=== PATIENT | male | born 1990 | race Caucasian/White ===

== ENCOUNTER 2024-11-11 08:36 | Emergency (ER) | payer BC, SELFPAY ==
[2024-11-11 08:43] VITALS: BP 173/78; PULSE 93; RESP 18; TEMP 37.2; O2SAT 99
[2024-11-11 09:10] LABS: Hematocrit 41.9 % (42.0-52.0); Hemoglobin 14.1 g/dL (14.0-18.0); Immature Granulocyte Percent A 0.4 % (0-0.5); Lymphocytes Absolute Auto 1.41 K/mm3 (0.9-3.2); Mean Corpuscular HGB Conc 33.7 g/dl (32-36); Mean Corpuscular Hemoglobin 29.7 pg (26-34); Mean Corpuscular Volume 88.4 fl (80-100); Nucleated Red Blood Cells Absolute Auto 0.000 K/mm3 (0.0-0.012); Nucleated Red Blood Cells Perc 0.0 % (0.0-0.2); Platelet Count Result 190 k/mm3 (150-375); Red Blood Count 4.74 M/mm3 (4.6-6.20); White Blood Count 8.3 K/mm3 (4.5-10.0)
--- OUTSIDE RECORDS SUMMARY | 2024-11-11 09:13 | XMS_ITS | Clinical Summary ---
Author Organization [facility] Address [address] [place] [address] Care Team Providers Care Mine Equipment Design Engineer Name Role Phone Johnathan Quevedo MD Primary Care Provider +1- [phone] Allergies Active Allergy Reactions Criticality Noted Date Comments Amoxicillin Tightness in Throat High 05/05/2023 Penicillins OTHER (SEE COMMENTS),SWELLING,UNKNOWN High 06/02/2011 Sulfa Antibiotics OTHER (SEE COMMENTS),SWELLING High 06/02/2011 Medications Multiple Vitamin (MULTI-VITAMIN DAILY) Oral Tab Take by mouth. Active Cholecalciferol (VITAMIN D) 50 MCG (1999 [place]) Oral Cap Take by mouth. Active Active Problems Problem Noted Date Diagnosed Date Dyslipidemia--LDL 288 05/08/2023 Obesity with body mass index (BMI) of 30.0 to 39 .9 05/05/2023 Encounters Date Type Department Care Team Description 11/06/2024 8:40 AM CDT Office Visit Immediate Care - [address] [place] [address] [place], [place] [address] Andie Mendez APRN Rectal pain (Primary Dx); Elevated blood pressure reading 11/06/2024 8:05 AM CDT [facility] Lab Encounter Lab - [address], [place] [address] [place] [address] Screening for thyroid disorder; Screening for metabolic disorder; Dyslipidemia--LDL 288; Perineal pain in male 11/06/2024 Orders Only Lab - [address], [place] [address] [place] [address] Sina Palacios PA-C Dyslipidemia--LDL 288 (Primary Dx) 11/03/2024 9:30 AM CDT Office Visit Internal Medicine - [facility] [place] [address] [facility] [address] [place] [address] Sina Palacios PA-C Encounter for preventative adult health care examination (Primary Dx); Perineal pain in male; Dyslipidemia--LDL 288; Screening for deficiency anemia; Screening for metabolic disorder; Screening for thyroid disorder from Last 3 Months Immunizations Immunization Administration Dates Next Due DT 10/17/2001 DTAP 10/13/1994 DTAP INFANRIX 10/13/1994, 3,04/25/1991,1990,1990 DTP 10/17/2001,10/13/1994 FLUZONE 6 months and older P FS 0.5 ml (12239) 11/12/2017 HEP B 07/18/2001,03/14/2001,01/18/2001 HEP B, Ped/Adol 07/18/2001,03/14/2001,01/18/2001 HIB 3 Dose Schedule 01/23/1992, 2,02/14/1991,1990 Hib, Unspecified Formulation 01/23/1992, 04/25/1991,02/14/1991,1990 IPV 10/13/1994, 3,02/14/1991,1990 MMR 10/13/1994,01/23/1992 Meningococcal-Menactra 08/20/2009 OPV 10/13/1994, 3,02/14/1991,1990 TDAP 11/03/2024,11/20/2014,08/20/2009 Tb Intradermal Test 10/05/2018,09/28/2017,2001 Family History Medical History Relation Comments cognitive impairment Father Heart Disease Maternal Grandfather Breast Cancer Maternal Grandmother Dementia Paternal Aunt Relation Status Comments Father Alive Maternal Grandfather Maternal Grandmother Mother Alive Paternal Aunt Social History Tobacco Use Types Packs/Day Years Used Date Smoking Tobacco: Never Passive Smoke Exposure: Never Smokeless Tobacco: Never Tobacco Cessation:Counseling Given: Not Answered Alcohol Use Standard Drinks/Week Comments Not Currently 0 (1 standard drink = 0.6 oz pur e alcohol) ocassional PHQ-2 Answer Date Recorded PHQ-2 SCORE 0 11/03/2024 AUDIT-C Answer Date Recorded Q1: How often do you have a drink containing alc ohol? 2-4 times a month 11/03/2024 Q2: How many drinks containi ng alcohol do you have on a typical day when you are drinking? 1 or 2 11/03/2024 Q3: How often do you have si x or more drinks on one occasion? 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 Not on file Last Filed Vital Signs Vital Sign Reading Time Taken Comments Blood Pressure 152/87 11/06/2024 8:27 AM CDT Pulse 75 11/06/2024 8:27 AM CDT Temperature 36.9 C (98.4 F) 11/06/2024 8:27 AM CDT Respiratory Rate 18 11/06/2024 8:27 AM CDT Oxygen Saturation 98% 11/06/2024 8:27 AM CDT Inhaled Oxygen Concentration - - Weight 108 kg (238 lb) 11/03/2024 9:22 AM CDT Height 182.9 cm (6') 11/03/2024 9:22 AM CDT Body Mass Index 32.28 11/03/2024 9:22 AM CDT Plan of Treatment Upcoming Encounters Date Type Department Care Team (Late st Contact Info) Description 11/14/2024 11:15 AM CDT Office Visit Surgery - [facility] [place] [address] [place] [address] Sherwin Johnson MD [address] [place] [address] Health Maintenance Due Date Last Done Comments Influenza Vaccine (#1) 2024 11/12/2017 Annual Depression Screen 11/03/2025 11/03/2024 Annual Physical 11/03/2025 11/03/2024, 11/03/2024, 05/05/2023 COVID-19 Vaccine Discontinued 04/14/2021, 07/22/2020, 06/24/2020 Pneumococcal Vaccine: to 49yrs Aged Out No longer eligible b ased on patient's age to complete this topic Procedures Procedure Name Priority Date/Time Associated Diagnosis Comments URINALYSIS, ROUTINE WITH MICROSCOPIC EXAMINATION ON POSITIVES Routine 11/06/2024 8:32 AM CDT Screening for metabolic disorder COMPLETE BLOOD COUNT (CBC) WITH DIFFERENTIAL Routine 11/06/2024 8:03 AM CDT Screening for thyroid disorder PROSTATE-SPECIFIC ANTIGEN (PSA) Routine 11/06/2024 8:03 AM CDT Perineal pain in male TSH W REFLEX TO FREE T4 Routine 11/06/2024 8:03 AM CDT Screening for thyroid disorder LIPID PANEL Routine 11/06/2024 8:03 AM CDT Dyslipidemia--LDL 288 COMPREHENSIVE METABOLIC PANEL Routine 11/06/2024 8:03 AM CDT Screening for metabolic disorder COMPLETE BLOOD COUNT (CBC) WITH DIFFERENTIAL Routine 11/06/2024 8:03 AM CDT Screening for thyroid disorder PERIODIC PREVENTIVE MED EST PATIENT 18-39 YRS Routine 11/03/2024 5:57 PM CDT Encounter for preventative adult health care examination Screening for deficiency anemia Screening for metabolic disorder Screening for thyroid disorder from Last 3 Months Results * URINALYSIS, ROUTINE WITH MICROSCOPIC EXAMINATION ON POSITIVES (11/06/2024 8:32 AM CDT) Color YELLOW YELLOW 11/07/2024 7:07 AM CDT [facility] Appearance CLEAR CLEAR 11/07/2024 7:07 AM CDT [facility] Bilirubin NEGATIVE NEGATIVE 11/07/2024 7:07 AM CDT [facility] Ketones NEGATIVE NEGATIVE 11/07/2024 7:07 AM CDT [facility] Specific Clancy 1.015 1.001 - 1.035 11/07/2024 7:07 AM CDT [facility] Occult Blood NEGATIVE NEGATIVE 11/07/2024 7:07 AM CDT [facility] Ph 7.5 5.0 - 8.0 11/07/2024 7:07 AM CDT [facility] Protein NEGATIVE NEGATIVE 11/07/2024 7:07 AM CDT [facility] Nitrite NEGATIVE NEGATIVE 11/07/2024 7:07 AM CDT [facility] Leukocyte Esterase NEGATIVE NEGATIVE 11/07/2024 7:07 AM CDT [facility] Glucose NEGATIVE NEGATIVE 11/07/2024 7:07 AM CDT [facility] Urine 11/06/2024 8:32 AM CDT 11/06/2024 8:32 AM CDT Narrative [facility] - 11/07/2024 7:07 AM CDT Performing Organization Information: [facility] [address] [place] [address] Sekou Nguyen Sina Palacios PA-C URINE ORDERABLES Final Result [facility] * COMPLETE BLOOD COUNT (CBC) WITH DIFFERENTIAL (11/06/2024 8:03 AM CDT) WBC 6.83 4.00 - 13.00 10^3/uL 11/06/2024 3:27 PM CDT [facility] RBC 5.03 4.30 - 5.70 10^6/uL 11/06/2024 3:27 PM CDT [facility] Hemoglobin 15.1 13.0 - 17.0 g/dL 11/06/2024 3:27 PM CDT [facility] Hematocrit 45.6 37.0 - 53.0 % 11/06/2024 3:27 PM CDT [facility] MCV 90.7 80.0 - 99.0 fL 11/06/2024 3:27 PM CDT [facility] MCH 30.0 27.0 - 33.2 pg 11/06/2024 3:27 PM CDT [facility] MCHC 33.1 31.0 - 37.0 g/dL 11/06/2024 3:27 PM CDT [facility] Platelet Count 210 150 - 450 10^3/uL 11/06/2024 3:27 PM CDT [facility] RDW 12.3 11.5 - 16.0 % 11/06/2024 3:27 PM CDT [facility] MPV 9.7 7.0 - 11.5 fL 11/06/2024 3:27 PM CDT [facility] Neutrophils Absolute 4.57 1.30 - 6.70 10 3/ L 11/06/2024 3:27 PM CDT [facility] Lymphocytes Absolute 1.22 0.90 - 4.00 10 3/ L 11/06/2024 3:27 PM CDT [facility] Monocytes Absolute 0.92 0.10 - 1.00 10 3/ L 11/06/2024 3:27 PM CDT [facility] Eosinophils Absolute 0.09 0.00 - 0.30 10 3/ L 11/06/2024 3:27 PM CDT [facility] Basophils Absolute 0.03 0.00 - 0.10 10 3/ L 11/06/2024 3:27 PM CDT [facility] nRBC Absolute 0.000 0.000 - 0.012 10 3/ L 11/06/2024 3:27 PM CDT [facility] Neutrophils % 66.9 % 11/06/2024 3:27 PM CDT [facility] Lymphocytes % 17.9 % 11/06/2024 3:27 PM CDT [facility] Monocytes % 13.5 % 11/06/2024 3:27 PM CDT [facility] Eosinophils % 1.3 % 11/06/2024 3:27 PM CDT [facility] Basophils % 0.4 % 11/06/2024 3:27 PM CDT [facility] nRBC/100 WBC 0.00 % 11/06/2024 3:27 PM CDT [facility] Blood Venipuncture / Unknown 11/06/2024 8:03 AM CDT 11/06/2024 8:03 AM CDT Sina Fink PA-C LAB BLOOD ORDERABLES Final Resu lt [facility] [address] [phone] * (ABNORMAL) COMPREHENSIVE METABOLIC PANEL (11/06/2024 8:03 AM CDT) Patient Fasting? Yes 11/07/19 3:16 PM CDT [facility] Glucose 84 74 - 109 mg/dL 11/06/2024 3:16 PM CDT [facility] Blood Urea Nitrogen 21.0(H) 6.0 - 20.0 mg/dL 11/06/2024 3:16 PM CDT [facility] Creatinine 1.11 0.70 - 1.20 mg/dL 11/06/2024 3:16 PM CDT [facility] Sodium 139 136 - 145 mmol/L 11/06/2024 3:16 PM CDT [facility] Potassium 4.5 3.5 - 5.2 mmol/L 11/06/2024 3:16 PM CDT [facility] Chloride 103 98 - 107 mmol/L 11/06/2024 3:16 PM CDT [facility] Carbon Dioxide 25.1 22.0 - 29.0 mmol/L 11/06/2024 3:16 PM CDT [facility] Calcium 9.3 8.6 - 10.3 mg/dL 11/06/2024 3:16 PM CDT [facility] Total Protein 7.4 6.4 - 8.3 g/dL 11/06/2024 3:16 PM CDT [facility] Albumin 4.3 3.5 - 5.2 g/dL 11/06/2024 3:16 PM CDT [facility] Bilirubin, Total 0.67 0.00 - 1.20 mg/dL 11/06/2024 3:16 PM CDT [facility] Alkaline Phosphatase 54 45 - 117 U/L 11/06/2024 3:16 PM CDT [facility] AST 34 0 - 40 U/L 11/06/2024 3:16 PM CDT [facility] ALT 29 0 - 41 U/L 11/06/2024 3:16 PM CDT [facility] GFR CKD-EPI NO RACE 89.4 >=60.0 mL/min/1.7 3 square meters 11/06/2024 3:16 PM CDT [facility] Comment: Estimated GFR unit: ml/min/1.73 square meters. GFR has been changed to the non-race based CKD-EPI equation as recommended by The National Kidney Foundation (NKF) and the [place] Society of Nephrology. As per College of [place] Pathologists (CAP) recommendations, potential for systematic population differences is still present when using creatinine-only eGFR equations. Caution should be used when interpreting results around fixed clinical decision points. Blood Venipuncture / Unknown 11/06/2024 8:03 AM CDT 11/06/2024 8:03 AM CDT [employer] COATS-C LAB BLOOD ORDERABLES Final Resu lt [facility] [address] [phone] * PROSTATE-SPECIFIC ANTIGEN (PSA) (11/06/2024 8:03 AM CDT) PSA 0.420 0.01 - 4 ng/mL 11/07/2024 9:03 AM CDT [facility] Blood Venipuncture / Unknown 11/06/2024 8:03 AM CDT 11/06/2024 8:03 AM CDT SinaSSN Funding AR-C LAB BLOOD ORDERABLES Final Resu lt [facility] [address] [place], [place] [id number] [place] [address] * (ABNORMAL) LIPID PANEL (11/06/2024 8:03 AM CDT) Patient Fasting? Yes 11/07/19 3:16 PM CDT [facility] Triglycerides 77 <=150 mg/dL 11/06/2024 3:16 PM CDT [facility] Direct HDL 34(L) >=40 mg/dL 11/06/2024 3:16 PM CDT [facility] Comment:Guidelines for high density lipoprotein (HDL) are adapted from the National Cholesterol Education Program (NCEP).Values >=40 mg/dL are considered a negative risk factor for coronary heart disease (CHD) and are considered protective. Risk Factor 6.7(H) <5.0 11/06/2024 3:16 PM CDT [facility] Cholesterol 229(H) <=200 mg/dL 11/06/2024 3:16 PM CDT [facility] Calculated LDL 180(H) <=130 mg/dL 11/06/2024 3:16 PM CDT [facility] Calculated VLDL 15 <=30 mg/dL 11/06/2024 3:16 PM CDT [facility] Blood Venipuncture / Unknown 11/06/2024 8:03 AM CDT 11/06/2024 8:03 AM CDT Sina Palacios PA-C LAB BLOOD ORDERABLES Final Resu lt [facility] [address] [place] [address] * TSH W REFLEX TO FREE T4 (11/06/2024 8:03 AM CDT) TSH 1.150 0.270 - 4.200 mIU/L 11/06/2024 3:15 PM CDT [facility] Blood Venipuncture / Unknown 11/06/2024 8:03 AM CDT 11/06/2024 8:03 AM CDT Sina Palacios PA-C LAB BLOOD ORDERABLES Final Resu lt [facility] [address] [phone] from Last 3 Months Insurance [facility] Care Teams Mine Equipment Design Engineer Relationship Specialty [place] [address] [facility] [address] [place] [phone] PCP - General Internal Medicine 05/05/23
--- OUTSIDE RECORDS SUMMARY | 2024-11-11 09:13 | XMS_ITS | Clinical Summary ---
Author Organization [facility] Address [address] [place] [address] Care Team Providers Care Open Hearth Furnace Laborer Name Role Phone Johnathan Quevedo MD Primary Care Provider +1- [phone] Allergies Active Allergy Reactions Criticality Noted Date Comments Amoxicillin UNKNOWN 11/06/2024 Penicillins UNKNOWN 11/06/2024 Sulfa Antibiotics UNKNOWN 11/06/2024 Medications ciprofloxacin 500 MG Oral Tab Take 1 tablet (500 mg total) by mouth 2 (two) times daily for 7 days. 14 tablet 11/06/2024 Active metroNIDAZOLE 500 MG Oral Tab Take 1 tablet (500 mg total) by mouth 3 (three) times daily for 7 days. 21 tablet 11/06/2024 5 Active Encounters Date Type Department Care Team Description 11/06/2024 9:13 AM CDT - 11/06/2024 10:09 AM T [facility] Emergency Department [address] [place] [address] Bebeto Jones MD Perianal abscess (Primary Dx) Discharge Disposition: Home or Self Care 11/06/2024 Travel from Last 3 Months Social History Tobacco Use Types Packs/Day Years Used Date Smoking Tobacco: Never Smokeless Tobacco: Never Tobacco Cessation:Counseling Given: Not Answered Interpersonal Safety Answer Date Record ed Feels Physically and Emotionally Safe Not on dave e 11/06/2024 Physically Hurt by Someone Not on file 11/06 Humiliated or Emotionally Abused by Someone Not on file 11/06/2024 Does healthcare provider obs erve any obvious signs or symptoms of abuse/neglect? No 11/06/2024 Domestic Safety - Pt Reported (Most Recent Flow) No 11/06/2024 Sex and Gender Information Value Date Recorded Sex Assigned at Not on file Legal Sex Male 9:02 AM CDT Gender Identity Not on file Sexual Orientation Not on file Last Filed Vital Signs Vital Sign Reading Time Taken Comments Blood Pressure 147/81 11/06/2024 9:15 AM CDT Pulse 74 11/06/2024 9:15 AM CDT Temperature 37.4 C (99.4 F) 11/06/2024 9:08 AM CDT Respiratory Rate 20 11/06/2024 9:15 AM CDT Oxygen Saturation 98% 11/06/2024 9:15 AM CDT Inhaled Oxygen Concentration - - Weight 106.6 kg (235 lb) 11/06/2024 9:08 AM CDT Height 182.9 cm (6') 11/06/2024 9:08 AM CDT Body Mass Index 31.87 11/06/2024 9:08 AM CDT Plan of Treatment Upcoming Encounters Date Type Department Care Team (Late st Contact Info) Description 11/16/2024 11:30 AM CDT Office Visit [facility] [place] [address] [place] [address] Candy Diaz PA-C [address] [place] [address] Health Maintenance Due Date Last Done Comments Annual Physical 1990 DTaP,Tdap,and Td Vaccines (1 - Tdap) 2009 COVID-19 Vaccine (4 - 2023-2 5 season) 2023 04/14/2021, 07/22/2020, 06/24/2020 Annual Depression Screening 03/29/2024 Influenza Vaccine (#1) 2024 11/12/2017 Meningococcal B Vaccine Aged Out No l onger eligible based on patient's age to complete this topic Pneumococcal Vaccine: to 50yrs Aged Out No longer eligible b ased on patient's age to complete this topic Insurance [facility] PPO Care Teams Open Hearth Furnace Laborer Relationship Specialty [place] [address] [address] [facility] [address] [place] [address] PCP - General Internal Medicine 11/06/24
--- OUTSIDE RECORDS SUMMARY | 2024-11-11 09:13 | XMS_ITS | Encounter Summary ---
Author Organization [facility] Address [address] [place] [address] Care Team Providers Care Global Program Director Name Role Phone Johnathan Quevedo MD Primary Care Provider +1- [phone] Encounter Details Date Type Department Care Team (Late st Contact Info) Description 11/06/2024 Orders Only Lab [facility] [address] [address] [place] [address] Sina Palacios PA-C [address] [facility] [address] [place] [address] Dyslipidemia--LDL 288 (Primary Dx) Social History Tobacco Use Types Packs/Day Years Used Date Smoking Tobacco: Never Passive Smoke Exposure: Never Smokeless Tobacco: Never Alcohol Use Standard Drinks/Week Comments Not Currently [...] on file 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 Answer Date of Assessment Author No 11/03/2024 9:24 AM CDT Myra Ram CMA * Vision Problems? Answer Date of Assessment Author No 11/03/2024 9:24 AM CDT Mirianbo sAnniea, FELT FINISHER * Difficulty walking? Answer Date of Assessment Author No 11/03/2024 9:24 AM CDT Mirianbo sAnniea, FELT FINISHER * Difficulty dressing or bathing? Answer Date of Assessment Author No 11/03/2024 9:24 AM CDT Mirianbo sAnniea, FELT FINISHER * Problems with daily activities? Answer Date of Assessment Author No 11/03/2024 9:24 AM CDT Mirianbo sAnniea, LUISA documented as of this encounter Mental Status * Memory Problems? Answer Entry Date Author No 11/03/2024 9:24 AM CDT Myra Ram, LUISA documented in this encounter Plan of Treatment Upcoming Encounters Date Type Department Care Team (Late st Contact Info) Description 11/14/2024 11:15 AM CDT Office Visit Surgery - [place] [place] [address] [place] [address] Sherwin Johnson MD [address] [place] [address] Scheduled Orders Name Type Priority Associated Diagnoses Orde r Schedule CARDIAC CALCIUM SCORE ([id number]) Imaging Routine Dyslipidemia--LDL 288 Expected: 11/06/2024 (Approximate), Expires: 11/06/2025 documented as of this encounter Visit Diagnoses Diagnosis Dyslipidemia--LDL 288- Primary Other and unspecified hyperlipidemia documented in this encounter Care Teams Global Program Director Relationship Specialty Start [place] [address] [facility] [address] [place] [phone] PCP - General Internal Medicine 05/05/23 documented as of this encounter
--- OUTSIDE RECORDS SUMMARY | 2024-11-11 09:13 | XMS_ITS | Clinical Summary ---
Author Organization [facility] Address [address] [place] [address] Care Team Providers Care Mortgage Loan Officer Name Role Phone Pcp, No Primary Care Provider Unavailabl e Pcp, No Unavailable Unavailable Allergies Active Allergy Reactions Criticality Noted Date Comments Penicillins SWELLING,Other (See Comments) 06/01 Sulfa Antibiotics SWELLING,Other (See Comments) 06/02/2011 Medications tobramycin (TOBREX) 0.3 % ophthalmic solutionIndicat ions:Acute non-recurrent maxillary sinusitis Place 1 drop into both eyes in the morning and 1 drop at noon and 1 drop in the evening. 5 mL 11/18/2021 Active Active Problems No known active problems Immunizations Immunization Administration Dates Next Due DPT 10/13/1994 DT: Child type diphtheria/tetanus 10/17/2001 DTaP 10/13/1994, 3,04/25/1991,02/14,1990 HIB, Unspecified Formulation 01/23/1992, 04/25/1991,02/14/1991,12/06 Hep B, adolescent or pediatric 07/18/2001,2000,01/18/2001 Hib (PRP-OMP) 01/23/1992, 2,02/14/1991,12/06 IPV 10/13/1994, 3,02/14/1991,12/06 Influenza, split virus, quad rivalent, PF 11/12/2017 MMR 10/13/1994,01/23/1992 Meningococcal Conjugate MCV4 P (Menactra) 08/20/2009 PPD 10/05/2018,09/28/2017,12/06/2001 Polio, Oral 10/13/1994, 3,02/14/1991,12/06 Tdap 11/20/2014,08/20/2009 Surgical History Surgery Date Site/Laterality Comments NO PAST SURGERIES Medical History Medical History Date Comments No known problems Family History Medical History Relation Comments Patient is unaware of any medical problems Fathe r Patient is unaware of any medical problems Mothe r Patient is unaware of any medical problems Siste r Relation Status Comments Father Alive Mother Alive Sister Alive Social History Tobacco Use Types Packs/Day Years Used Date Smoking Tobacco: Never Smokeless Tobacco: Never Alcohol Use Standard Drinks/Week Comments Yes 0 (1 standard drink = 0.6 oz pur e alcohol) limited Inadequate Housing Answer Date Recorded Social Determinants: Housing (Overall Score Help er) 0 11/15/2021 Sex and Gender Information Value Date Recorded Sex Assigned at Not on file Legal Sex Male 5:09 PM CDT Gender Identity Not on file Sexual Orientation Not on file Obstetrics History Last Filed Vital Signs Vital Sign Reading Time Taken Comments Blood Pressure 132/84 11/18/2021 11:51 AM CDT Pulse 84 11/18/2021 11:51 AM CDT Temperature 37.4 C (99.4 F) 11/18/2021 11:51 AM CDT Respiratory Rate 20 11/18/2021 11:51 AM CDT Oxygen Saturation 98% 11/15/2021 3:19 PM CDT Inhaled Oxygen Concentration - - Weight 104.8 kg (231 lb) 11/18/2021 11:51 AM CDT Height 180.3 cm (5' 11) 11/18/2021 11:51 AM CDT Body Mass Index 32.22 11/18/2021 11:51 AM CDT Plan of Treatment Health Maintenance Due Date Last Done Comments Depression Screening 2002 Varicella Vaccine (1 of 2 - 13+ 2-dose series) 10/03/2003 COVID-19 Vaccine ( - 2023- season) 2023 DTaP/Tdap/Td Vaccine (9 - Td or Tdap) 11/20/2024 11/20/2014, 08/20/2009, 10/17/2001, Additional history exists Influenza Vaccine (#1) 2024 11/12/2017 Hepatitis B Vaccine Completed 07/18/2001, 03/14/2001, 01/18/2001 Meningococcal Vaccine Completed 08/20/2009 HPV Vaccine (No Doses Required) Completed Hepatitis A Vaccine Aged Out No longe r eligible based on patient's age to complete this topic Meningococcal Serogroup B Vaccine Aged Out No longer eligible based on patient's age to complete this topic Pneumococcal Vaccine 0-49 Aged Out No longer eligible based on patient's age to complete this topic Insurance [facility] MISC Care Teams Mortgage Loan Officer Relationship Specialty Start Date End Date Pcp, No PCP - General 10/08/18 Pcp, No 10/08/18
[2024-11-11 09:34] LABS: Alanine Aminotransferase 32 U/L (6-50); Albumin Level 4.1 g/dL (3.5-5.1); Alkaline Phosphatase 48 U/L (38-126); Anion Gap 8 mmol/L (4-12); Aspartate Amino Transferase 53 U/L (17-59); Bilirubin,Total 0.5 mg/dL (0.2-1.3); Blood Urea Nitrogen 20 mg/dL (9-20); Calcium 9.2 mg/dL (8.4-10.2); Carbon Dioxide 24 mmol/L (22-30); Chloride 106 mmol/L (98-107); Estimated CRCL calculation 94 ml/min; Estimated Glomerular Filt Rate > 60; Glucose 100 mg/dL (65-110); Potassium 4.5 mmol/L (3.4-5.0); Sodium 138 mmol/L (137-145); Total Protein 7.4 g/dL (6.3-8.2)
--- NOTE | 2024-11-11 09:51 | PC.NURSE ---
Pt. states he needs to leave because he is in a wedding at noon. Pt. signed out AMA. Dr. Morris aware. Risks of leaving reviewed wiht pt. GCS 15 at time of d/c.
--- NOTE | 2024-11-11 14:25 | ED_ITS ---
HPI - General Adult General Chief complaint: Skin/Abscess/Foreign Body Stated complaint: Perineal abscess Time Seen by Provider: 11/11/24 08:55 Source: patient Mode of arrival: ambulatory Limitations: no limitations History of Present Illness HPI narrative: 34-year-old otherwise healthy here with the complaints of any pain in the perianal area. Patient states that he had abscess drained a day ago , he states he had needle aspiration and was started on Cipro and flagyl , he is now having more pain ,he thinks abscess is coming back . He denies any chills or fever. Onset (ago): day(s) (1) Location: buttocks Radiation: non-radiation Severity: mild Quality: aching Pain Consistency: constant Relieving factors: none Exacerbating factors: none Associated symptoms: denies other symptoms Related Data Allergies Allergy/AdvReac Type Severity Reaction Status Date / Time Penicillins Allergy Severe Anaphylaxis Verified 11/11/24 08:47 Sulfa (Sulfonamide Allergy Severe Anaphylaxis Verified 11/11/24 08:47 Antibiotics) Review of Systems 2 Review of Systems: All systems reviewed & are unremarkable except as noted in HPI and below Constitutional: Constitutional: Reports no additional constitutional complaints Eyes: Eyes: Reports no additional eye complaints ENT: Reports system reviewed and no additional complaints, except as documented Cardiovascular: Cardiovascular: Reports no additional cardiovascular complaints Respiratory: Respiratory: Reports no additional respiratory complaints Gastrointestinal: Gastrointestinal: Reports as per HPI Genitourinary: Genitourinary: Reports no additional male genitourinary complaints Musculoskeletal: Musculoskeletal: Reports as per HPI Integumentary/Breasts: Skin/Breast: Reports system reviewed and no additional complaints, except as docu Neurologic: Reports system reviewed and no additional complaints, except as documented Exam 2 Narrative: GENERAL: Well-appearing, well-nourished, and in no acute distress. HEAD: Normocephalic, atraumatic. EYES: PERRLA and EOMI. ENT: Nares clear, no rhinorrhea or epistaxis. Mucous membranes moist. NECK: Supple. CHEST: Clear to auscultation. No respiratory distress. HEART: Regular rate and rhythm. No murmur heard. Normal peripheral pulses. ABDOMEN: Soft, nontender, nondistended, normal active bowel sounds. EXTREMITIES: Normal range of motion. No edema. SKIN: Warm, dry, no rash. NEURO: No focal deficits. Alert and oriented x3. PSYCH: Normal mood and affect. Course Course Emergency Course: I did inform him I did not see any palpable abscess in obtain a CT the pelvis to make sure he has no deep-seated abscess. Patient agreed , 45 minutes later he states that he has to be at the wedding and he cannot wait for CT scan is wants to sign out AMA. Vital Signs Vital signs: Vital Signs Temperature 37.2 C 11/11/24 08:43 Pulse Rate 93 11/11/24 08:43 Respiratory Rate 18 11/11/24 08:43 Blood Pressure 173/78 H 11/11/24 08:43 Pulse Oximetry 99 11/11/24 08:43 Oxygen Delivery Room Air 11/11/24 08:43 Temperature 37.2 C 11/11/24 08:43 Pulse Rate 93 11/11/24 08:43 Respiratory Rate 18 11/11/24 08:43 Blood Pressure 173/78 H 11/11/24 08:43 Pulse Oximetry 99 11/11/24 08:43 Oxygen Delivery Room Air 11/11/24 08:43 Medical Decision Making Differential Diagnosis Differential Diagnosis: Perirectal abscess, cellulitis , postop pain Medical Records Medical records reviewed: Yes I reviewed the external patient's medical records. Vital Signs Vital Signs: Vital Signs Temperature 37.2 C 11/11/24 08:43 Pulse Rate 93 11/11/24 08:43 Respiratory Rate 18 11/11/24 08:43 Blood Pressure 173/78 H 11/11/24 08:43 Pulse Oximetry 99 11/11/24 08:43 Oxygen Delivery Room Air 11/11/24 08:43 Temperature 37.2 C 11/11/24 08:43 Pulse Rate 93 11/11/24 08:43 Respiratory Rate 18 11/11/24 08:43 Blood Pressure 173/78 H 11/11/24 08:43 Pulse Oximetry 99 11/11/24 08:43 Oxygen Delivery Room Air 11/11/24 08:43 Lab Data Lab results reviewed: Yes I reviewed the patient's lab results. 11/11/24 09:03 11/11/24 09:03 Labs: Lab Results 11/11/24 Range/Units 09:03 WBC 8.3 (4.5-10.0) K/mm3 RBC 4.74 (4.6-6.20) M/mm3 Hgb 14.1 (14.0-18.0) g/dL Hct 41.9 L (42.0-52.0) % MCV 88.4 (80-100) fl MCH 29.7 (26-34) pg MCHC 33.7 (32-36) g/dl RDW 11.9 (11.5-14.5) % Plt Count 190 (150-375) k/mm3 MPV 8.6 (7.4-10.4) fl Immature Gran % (Auto) 0.4 (0-0.5) % Neut % (Auto) 68.7 (45.5-73.1) % Lymph % (Auto) 16.9 L (18.3-44.2) % [place] % (Auto) 12.1 H (2.6-8.5) % Eos % (Auto) 1.3 (0-4.4) % Baso % (Auto) 0.6 (0.2-1.2) % Lymph # (Auto) 1.41 (0.9-3.2) K/mm3 [place] # (Auto) 1.0 H (0.1-0.6) K/mm3 Eos # (Auto) 0.1 (0-0.3) K/mm3 Baso # (Auto) 0.1 (0.0-0.1) K/mm3 Abs Immat Gran (auto) 0.03 (0.00-0.031) K/mm3 Absolute Neuts (auto) 5.7 (1.3-6.7) K/mm3 Absolute Nucleated RBC 0.000 (0.0-0.012) K/mm3 Nucleated RBC % 0.0 (0.0-0.2) % Sodium 138 (137-145) mmol/L Potassium 4.5 (3.4-5.0) mmol/L Chloride 106 (98-107) mmol/L Carbon Dioxide 24 (22-30) mmol/L Anion Gap 8 (4-12) mmol/L BUN 20 (9-20) mg/dL Creatinine 1.24 (0.7-1.3) mg/dL Estim Creat Clear Calc 94 ml/min Estimated GFR > 60 (59 - ) Glucose 100 (65-110) mg/dL Calcium 9.2 (8.4-10.2) mg/dL Total Bilirubin 0.5 (0.2-1.3) mg/dL AST 53 (17-59) U/L ALT 32 (6-50) U/L Alkaline Phosphatase 48 (38-126) U/L Total Protein 7.4 (6.3-8.2) g/dL Albumin 4.1 (3.5-5.1) g/dL Discharge Plan Discharge Clinical Impression: Perianal abscess Patient Disposition: Left Against Medical Advice Condition: Stable Patient Language: Greek Follow-up/Referrals: PHYSICIAN NOT ON STAFF,NONSTAFF [Primary Care Provider] -
== END 2024-11-11 10:03 | disposition left against medical advice (07) ==
PROVIDERS: Emergency Provider Family Medicine
DX: K61.0 Anal abscess (principal)
CPT/HCPCS: 36415; 80053; 85025; 99283